=== PATIENT | female | born 1980 | race Caucasian/White ===

== ENCOUNTER 2017-07-12 12:19 | Emergency (ER) | payer BC ==
[~2017-07-12] VITALS: Ht 172.7 cm; Wt 125.0 kg
[~2017-07-12 12:19] MED LIST: DOCUSATE SODIU100 MG PO; ENDOCET 5-3251 EACH PO; GUMMI BEAR MUL1 EACH PO; IBUPROFEN800 MG PO; KEFLEX500 MG PO; MOTRIN800 MG PO; PERCOCET 5/31 TABLET PO; PRENATAL TABLE1 EAC3 PO; PROMETHAZINE HC25 M1 PO; ULTRAM50 MG PO; ZOFRAN4 MG PO
[2017-07-12 12:44] LABS: HEMATOCRIT 44.5 % (36.0-46.0); HEMOGLOBIN 14.8 G/DL (11.9-15.5); MCH 29.5 PG (29.0-34.0); MCHC 33.3 G/DL (30.0-36.0); MCV 88.6 FL (83-99); PLATELET COUNT 286 K/uL (156-360); RBC DIS.WIDTH-CV 13.3 % (11.8-14.6); RBC DIS.WIDTH-SD 43.1 % (39-53); RED BLOOD COUNT 5.02 M/uL (3.80-5.20); WHITE BLOOD COUNT 13.7 K/uL (4.1-10.2)
[2017-07-12 12:50] LABS: CHLORIDE 107 mEq/L (99-109); POTASSIUM 4.3 mEq/L (3.7-5.4); SODIUM 138 mEq/L (136-147)
[2017-07-12 12:52] LABS: GLUCOSE 130 mg/dL (70-99); TOTAL PROTEIN 7.1 g/dL (6.4-8.3)
[2017-07-12 12:54] LABS: TOTAL BILIRUBIN 0.6 mg/dL (0.0-1.0)
[2017-07-12 12:56] LABS: ALKALINE PHOSPHATASE 75 IU/L (3-129); CREATININE 0.8 mg/dL (0.6-1.3); GFR ESTIMATE (CALCULATED) > 59 mL/min/
[2017-07-12 12:57] LABS: UREA NITROGEN (BUN) 15 mg/dL (9-23)
[2017-07-12 12:58] LABS: AST (GOT) 31 IU/L (2-34)
[2017-07-12 12:59] LABS: ALT (GPT) 66 IU/L (3-49)
[2017-07-12 13:07] LABS: QUANTITATIVE HCG < 4.0 MIU/ML
[2017-07-12 14:05] LABS: APPEARANCE SL.HAZY ((CLEAR)); BILIRUBIN NEGATIVE; BLOOD LARGE; COLOR YELLOW ((YELLOW)); GLUCOSE (STRIP) NEGATIVE; KETONES NEGATIVE; LEUKOCYTES TRACE; NITRITE NEGATIVE; PROTEIN (STRIP) 30; SPECIFIC GRAVITY 1.027 (1.000-1.030); UROBILINOGEN 0.2 MG/DL (0.2-1.0)
[2017-07-12 14:13] LABS: BACTERIA NONE SEEN /HPF; EPITHELIAL CELLS 1+ /HPF; HYALINE CASTS 0-5 /LPF; MUCUS TRACE /LPF; RED BLOOD CELLS TNTC /HPF (0-5); UCUL ADDED? YES
[2017-07-12] MEDS ORDERED: ZOFRAN ODT4 MG PO (15:48)
[2017-07-12 15:55] VITALS: BP 112/82
== END 2017-07-12 15:57 | disposition home or self-care (01) ==
LOC: EME 12:19
DX: R11.2 Nausea with vomiting, unspecified (principal); R19.7 Diarrhea, unspecified; Z90.49 Acquired absence of other specified parts of digestive tract; Z87.891 Personal history of nicotine dependence
CPT/HCPCS: 80053; 81003; 84702; 85027; 87077; 87086; 87186; 99281; 99284; J1885; J2405; J7030